=== PATIENT | male | born 1980 | race Caucasian/White ===

== ENCOUNTER 2021-03-04 20:18 | Emergency (ER) | payer BC ==
--- NOTE | 2021-03-04 22:11 | EDM.PDOC ---
ED HPI GENERAL MEDICAL PROBLEM - General Chief Complaint: Cardiovascular Problem Stated Complaint: HEART RACING Time Seen by Provider: 03/04/21 20:31 Source of Information: Reports: Patient History Limitations: Reports: No Limitations - History of Present Illness INITIAL COMMENTS - FREE TEXT/NARRATIVE: Eliseo is a 40-year-old male presenting to the ED for evaluation of tachycardia and feelings like he is having a panic attack. Patient started taking Celexa today and took his first dose this afternoon. He awoke from sleep around 4 PM with a rapid heartbeat and feeling like he was in a full panic attack. He was seen in the walk-in clinic and they evaluated him and told him that there was nothing wrong and to stop the Celexa. His tachycardia seemed to worsen this evening prompting him to come into the ED. 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 He now works a different job with much less stress, however, now he is having significant problems with his anxiety. He does drink a glass of wine 5 times a week. He denies any other significant alcohol or drug use. He also has issues with hypertension but it does not appear that he is on any medications for this at this time. Is followed by a primary care provider in [facility]. Currently is not having any symptoms at this time. - Related Data Allergies Allergy/AdvReac Type Severity Reaction Status Date / Time Iodinated Contrast Media Allergy Hives Verified 03/04/21 20:35 Home Meds: Home Meds Citalopram [Citalopram HBr] 20 mg PO DAILY 03/04/21 [History] Loratadine [Claritin RediTabs] 10 mg PO DAILY 03/04/21 [History] Past Medical History Cardiovascular History: Reports: Other (See Below) Other Cardiovascular History: palpitations andd "racing heart" over several weeks Neurological History: Reports: Migraines Psychiatric History: Reports: Anxiety - Infectious Disease History Infectious Disease History: Reports: Chicken Pox - Past Surgical History GI Surgical History: Reports: Appendectomy Social & Family History - Tobacco Use Tobacco Use Status *Q: Current Every Day Tobacco User Years of Tobacco use: 25 Packs/Tins Daily: 0.5 - Caffeine Use Caffeine Use: Reports: Coffee, Soda - Alcohol Use Days Per Week of Alcohol Use: 5 Number of Drinks Per Day: 2 Total Drinks Per Week: 10 Date of Last Drink: 03/04/21 - Recreational Drug Use Recreational Drug Use: No ED ROS GENERAL - Review of Systems Review Of Systems: See Below Constitutional: Reports: No Symptoms HEENT: Reports: No Symptoms Respiratory: Reports: Shortness of Breath Cardiovascular: Reports: Lightheadedness, Palpitations Endocrine: Reports: No Symptoms GI/Abdominal: Reports: No Symptoms : Reports: No Symptoms Musculoskeletal: Reports: No Symptoms Skin: Reports: No Symptoms Neurological: Reports: Dizziness Psychiatric: Reports: Anxiety Hematologic/Lymphatic: Reports: No Symptoms Immunologic: Reports: No Symptoms ED EXAM, GENERAL - Physical Exam Exam: See Below Exam Limited By: No Limitations General Appearance: Alert, No Apparent Distress Eye Exam: Bilateral Eye: EOMI, PERRL Throat/Mouth: Normal Inspection, Normal Oropharynx, Normal Voice, No Airway Compromise Head: Atraumatic, Normocephalic Neck: Normal Inspection, Supple, Non-Tender, Full Range of Motion Respiratory/Chest: No Respiratory Distress, Lungs Clear, Normal Breath Sounds Cardiovascular: Normal Peripheral Pulses, Regular Rate, Rhythm, No Murmur GI/Abdominal: Normal Bowel Sounds, Soft, Non-Tender Neurological: Alert, Oriented, Normal Cognition, No Motor/Sensory Deficits Psychiatric: Anxious Skin Exam: Warm, Dry #1 Interpretation EKG Date: 03/04/21 Time: 20:32 Rhythm: NSR Rate (Beats/Min): 103 [place]: Normal P-Wave: Present QRS: Normal (RSR' variant in V1 and V2 which is normal.) ST-T: Normal QT: Normal Comparison: NA - No Prior EKG Course - Vital Signs Last Recorded V/S: Last Vital Signs Temp 37.2 C 03/04/21 20:37 Pulse 80 03/04/21 22:05 Resp 16 03/04/21 20:37 BP 135/87 03/04/21 22:05 Pulse Ox 99 03/04/21 22:05 - Orders/Labs/Meds Orders: Active Orders 24 hr Category Date Time Status EKG Documentation Completion [RC] ASDIRECTED Care 03/04/21 20:31 Active EKG 12 Lead [EK] Routine Ther 03/04/21 20:31 Ordered - Re-Assessments/Exams Free Text/Narrative Re-Assessment/Exam: 03/04/21 22:12 reviewing the events of today, it sounds like the patient had a adverse reaction to starting his Celexa. We discussed how the SSRIs work and how they compete with dopamine. The patient has a fairly high anxiety level which is likely contributing to his episodes today. We discussed the mechanism of the fighter flight and how SSRIs work. I do think that he is intolerant to this medication as the side effect is much more significant I have not significant then the benefits at this time so of advised him to discontinue the Celexa. Because of his panic attacks, we will put him on a short course of lorazepam that he may use as needed to treat his panic attacks. I did advise him to follow-up with his primary care provider regarding an alternative to the Celexa. I do not believe that there is any significant cardiac abnormality here as he has a normal EKG. Has had a fairly thorough work-up in his primary care provider's office recently so I did not repeat labs. Indications to return to the ED were discussed and all questions were answered. Patient and his are in agreement with this plan. Departure - Departure Time of Disposition: 22:05 Disposition: Home, Self-Care 01 Clinical Impression: Anxiety, Sinus tachycardia Medication adverse effect Qualifiers: Encounter type: initial encounter Qualified Code(s): T50.905A - Adverse effect of unspecified drugs, medicaments and biological substances, initial encounter Instructions: Sinus Tachycardia Referrals: PCP,None [Primary Care Provider] - Forms: ED Department Discharge Care Plan Goals: Your symptoms are likely due to the initiation of the Celexa. Please refrain from any further use. We will put you on lorazepam 1 mg as needed for panic attack with a maximum of 2 tablets/day. I am prescribing you 10 tablets. Follow-up with your primary care provider to discuss an alternative to the Celexa for the treatment of your anxiety. It was a pleasure meeting you to and may be will run into each other at a car show in the [employer]. Sepsis Event Note (ED) - Evaluation Sepsis Screening Result: No Definite Risk - Focused Exam Vital Signs: Vital Signs Temp Pulse Resp BP Pulse Ox 03/04/21 22:05 80 135/87 99 03/04/21 20:37 37.2 C 106 H 16 155/98 H 99 03/04/21 20:30 104 H 24 H 160/97 H 99 - Problem List & Annotations (1) Anxiety SNOMED Code(s): 93359631 Code(s): F41.9 - ANXIETY DISORDER, UNSPECIFIED Status: Chronic Priority: Medium Current Visit: Yes (2) Medication adverse effect SNOMED Code(s): 81450170 Code(s): T50.905A - ADVERSE EFFECT OF UNSP DRUG/MEDS/BIOL SUBST, INIT Status: Acute Priority: Medium Current Visit: Yes Qualifiers: Encounter type: initial encounter Qualified Code(s): T50.905A - Adverse effect of unspecified drugs, medicaments and biological substances, initial encounter (3) Sinus tachycardia SNOMED Code(s): 91842164 Code(s): R00.0 - TACHYCARDIA, UNSPECIFIED Status: Acute Priority: Medium Current Visit: Yes - Problem List Review Problem List Initiated/Reviewed/Updated: Yes - My Orders Last 24 Hours: My Active Orders 03/04/21 20:31 EKG Documentation Completion [RC] ASDIRECTED EKG 12 Lead [EK] Routine - Assessment/Plan Last 24 Hours: My Active Orders 03/04/21 20:31 EKG Documentation Completion [RC] ASDIRECTED EKG 12 Lead [EK] Routine
== END 2021-03-04 22:24 | disposition home or self-care (01) ==
LOC: JP.ED 20:18
DX: R00.0 Tachycardia, unspecified (principal); F41.9 Anxiety disorder, unspecified; T43.225A Adverse effect of selective serotonin reuptake inhibitors, initial encounter; Z72.0 Tobacco use; Z91.041 Radiographic dye allergy status
CPT/HCPCS: 93005; 99284-25

== ENCOUNTER 2025-01-16 20:46 | Emergency (ER) | payer BC ==
[2025-01-16] MEDS: Bacitracin Oint 1 GM U/D Packet TOP ONE (22:20)
== END 2025-01-16 22:29 | disposition home or self-care (01) ==
LOC: JP.ED 20:46
DX: S61.411A Laceration without foreign body of right hand, initial encounter (principal); Z91.041 Radiographic dye allergy status; Z79.899 Other long term (current) drug therapy; W25.XXXA Contact with sharp glass, initial encounter
CPT/HCPCS: 12002; 99282